=== PATIENT | male | born 1945 ===

== ENCOUNTER 2020-04-15 14:42 | Emergency (ER) | payer MEDICARE, OTHER, SELFPAY ==
[2020-04-15 15:00] VITALS: BP 136/46; PULSE 68; O2SAT 85
--- NOTE | 2020-04-15 15:04 | ED.CPR ---
HPI - CPR General Chief Complaint: Cardiac Arrest/CPR Stated Complaint: Unresponsive Time Seen by Provider: 04/15/20 15:04 Source: EMS Mode of arrival: EMS History of Present Illness HPI narrative: Patient is a 75-year-old diabetic male who presents as post CPR. He had a ground level fall earlier in the day no sign of trauma he was talking to EMS when he passed out in front of them. ALS protocols were started he was given 2 rounds of epinephrine CPR and started being paced. According to he had gone out to the car to bring in a case of soda. He made up the stairs went to the bathroom when she heard him collapse. She has had he was unresponsive but then once EMS arrived he started talking. In EMS presents he then became unresponsive. Review of Systems Review of Systems ROS Unobtainable: Unobtainable due to medical condition Patient History Medical History (Updated 04/15/20 @ 15:43 by Shanthi Dubose DO) Diabetes (Acute) Exam Initial Vital Signs Initial Vital Signs: Vital Signs Pulse Rate 68 04/15/20 15:00 Blood Pressure 136/46 L 04/15/20 15:00 Pulse Oximetry 85 L 04/15/20 15:00 Gen.: Unresponsive male HEENT: Head is atraumatic no sign of trauma no abrasion no crepitation or depression, AMOS. Nabor tube present. Lungs: Chest rise with bagging equally Cardiac: Pulses with pacemaker Abdomen: Mild distension Extremities: No gross bony deformities Neurologic: Not responsive no tracking Procedures Intubation Time out performed: Yes sedative: Ketamine paralytic: Rocuronium Laryngoscope: fiber optic video scope ET Tube Size: 7 ET Tube Uncuffed: No Tube Placement Confirmation: Visualized tube passing through cords, Equal breath sounds bilaterally, No breath sounds over epigastrium and Confirmation by capnometry Patient Tolerated Procedure: Well and No complications Intubation Complications: none Course Vital Signs Vital signs: Vital Signs - 8 hr 04/15/20 15:00 04/15/20 15:05 04/15/20 15:11 Pulse Rate 68 126 H 142 H Respiratory Rate 20 Blood Pressure 136/46 L 122/73 Pulse Oximetry 85 L 99 MDM - Cardiac Arrest/CPR ECG Data Attestation: I personally reviewed and interpreted this ECG as follows: Interpretation: EKG 1. Paced rhythm difficult to interpret possible ST elevation EKG 2. Right bundle ken block noted heart rate [address]-T changes MDM Narrative Medical decision making narrative: Patient reassessed without pacemaker he did not have pulses. ALS protocol was followed. He received 2 additional rounds of epinephrine and CPR. He was given bicarb as well. Pulses returned. Patient has ROSC, no sign of trauma,assumed to be cardiac Dr. Vincent accepts transfer Discharge Plan Departure Patient Disposition: [facility] Clinical Impression: Cardiac arrest Discharge Date/Time: 04/15/20 15:58
[2020-04-15 15:05] VITALS: BP 122/73; PULSE 126; O2SAT 99
[2020-04-15 15:11] VITALS: PULSE 142; RESP 20; O2SAT 98
== END 2020-04-15 15:58 | disposition short-term general hospital (02) ==
PROVIDERS: Emergency Provider Emergency Medicine
DX: I46.9 Cardiac arrest, cause unspecified (principal); E11.9 Type 2 diabetes mellitus without complications
CPT/HCPCS: 31500; 92950; 93005; 94770; 99284; 99291